=== PATIENT | male | born 1995 | race Caucasian/White ===

== ENCOUNTER → 2018-06-19 | Outpatient (CLI) | payer SELFPAY ==
--- NOTE | 2018-06-19 12:53 | CONS ---
CONSULTATION DATE OF SERVICE: 06/19/2018 This 22-year-old gentleman has been evaluated in the sleep clinic for possible obstructive sleep apnea-hypopnea syndrome. The patient was referred to sleep center by at [facility]. HISTORY OF PRESENT ILLNESS/SLEEP-WAKE EVALUATION: Patient usual sleep schedule from 10 p.m. to 5 a.m. on working days and from midnight until about 8 to 8:30 a.m. on days off. No problem with falling asleep, although he has TV set in bedroom. According to the patient, he is able to sleep through the night without any awakenings. He denied any significant sleepiness during the day. Branch Sleepiness Scale is 7. He usually does not take any naps, but if he does take naps he feels refreshed and sometimes patient feels vivid dreams during the naps. No history of hypnagogic hallucinations, sleep paralysis or cataplexy. The patient significantly increased his weight for the last 6 years from around 260 pounds up to 313 pounds now. PAST MEDICAL HISTORY: Negative. PAST SURGICAL HISTORY: Right knee reconstruction for ACL problems. MEDICATIONS: None. FAMILY HISTORY: Hypertension, diabetes. REVIEW OF SYSTEMS: Sometimes vivid dreams during the naps, otherwise negative. PHYSICAL EXAMINATION: During physical exam, gentleman without distress. VITAL SIGNS: BP 137/76, HR 77, RR 18, height 6 feet and 1/2 inch, weight 313.8, body mass index 41.8, temperature 97.8. Oxygen saturation at room air 98%. HEENT: PERRLA, EOMI. Oropharynx very small oropharyngeal air space, low position of soft palate, pillars. Wide neck 18 inches in circumference. NECK: Supple, no JVD. Thyroid is not palpable. LUNGS: Clear to percussion and to auscultation. Good air exchange. No wheezing or rhonchi. HEART: S1, S2 regular. No murmurs, gallops, or rubs. ABDOMEN: Obese. EXTREMITIES: No clubbing or cyanosis. 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 Cranial nerves 2 to 7 intact. There is no fasciculation or atrophy. noted. No focal deficits observed. IMPRESSION: 1. Very small oropharyngeal air space, low position of soft palate, pillars, wide neck, obesity, possible obstructive sleep apnea-hypopnea syndrome. 2. Obesity, body mass index 41.8. The patient increased his weight of more than 50 pounds for the last 5 years. 3. Status post left knee reconstruction surgery for ACL problems. 4. History of vivid dreams during naps. 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 PLAN: 1. Polysomnography for evaluation of patient's breathing during sleep. 2. CPAP/BiPAP titration if sleep study confirms obstructive sleep apnea-hypopnea syndrome. 3. Preferable position during sleep on the side. 4. No driving if patient feels any sleepiness. 5. I will see patient for follow up visit to explain results of testing and following plan. Thank you very much for allowing me to participate in management of your patient Sincerely, David Wolff MD, PhD, FAASM Diplomat of [employer] [place] [employer] Principal Hardware Architect of [facility] [place] MMODL / IJN: [id number] /
== END | disposition home or self-care (01) ==
LOC: SLEEP 10:59
PROVIDERS: ATTEND Internal Medicine
DX: E66.9 Obesity, unspecified (principal); Z68.41 Body mass index [BMI] 40.0-44.9, adult; Z98.890 Other specified postprocedural states
CPT/HCPCS: 99211

== ENCOUNTER 2023-01-01 07:18 | Emergency (ER) | payer OTHER ==
[2023-01-01 07:26] VITALS: RESP 18; TEMP 97
--- NOTE | 2023-01-01 08:01 | ED ---
General Adult HPI - General Chief complaint: Abdominal Pain Stated complaint: Abd Pain, Acid Reflux Time Seen by Provider: 01/01/23 07:27 Source: patient Mode of arrival: ambulatory Limitations: no limitations - History of Present Illness Initial comments: Dictation was produced using gumi dictation software. please excuse any grammatical, word or spelling errors. Chief Complaint: 27-year-old male presents emergency Department with abdominal pain History of Present Illness: Patient with 7-year-old male presents emergency Department with abdominal pain. Patient states that pain is to his epigastric and right upper quadrant area. Patient reports that the pain radiates to the shoulder. He went to work this morning despite his symptoms and had a bout of vomiting. Patient states that his pain improved. Denies any symptoms yesterday. He does smoke and drink alcohol socially. Patient has any fever. No diarrhea. No obvious sick contacts. The ROS documented in this emergency department record has been reviewed and c onfirmed by me. Those systems with pertinent positive or negative responses have been documented in the HPI. All other systems are other negative and/or noncontributory. - Related Data Home Medications Medication Instructions Recorded Confirmed No Known Home Medications 01/01/23 01/01/23 Allergies Allergy/AdvReac Type Severity Reaction Status Date / Time No Known Allergies Allergy Verified 01/01/23 08:38 Review of Systems ROS Statement: Those systems with pertinent positive or pertinent negative responses have been documented in the HPI. ROS Other: All systems not noted in ROS Statement are negative. 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 , DAD STATES VERONICA HAS RINGWORM BUT IS NOT SURE WHERE IT IS LOCATED OR IF HE STILL HAS IT.- I NOTIFIED DR JUAREZ OFFICE AND SPOKE WITH FARA. History of Any Multi-Drug Resistant Organisms: None Reported Past Surgical History: No Surgical Hx Reported, Adenoidectomy Additional Past Anesthesia/Blood Transfusion Reaction / Comment(s): PT HAS NEVER HAD ANESTHESIA. Past Psychological History: No Psychological Hx Reported Smoking Status: Current every day smoker Past Alcohol Use History: Occasional Past Drug Use History: None Reported - Past Family History Mother Family Medical History: No Reported History General Exam - General Exam Comments Initial Comments: PHYSICAL EXAM: General Impression: Alert and oriented x3, not in acute distress HEENT: Normocephalic atraumatic, extra-ocular movements intact, pupils equal and reactive to light bilaterally, mucous membranes moist. Cardiovascular: Heart regular rate and rhythm Chest: Able to complete full sentences, no retractions, no tachypnea Abdomen: abdomen soft, non-tender, non-distended, no organomegaly, negative Cramer sign Musculoskeletal: Pulses present and equal in all extremities, no peripheral edema Motor: no focal deficits noted Neurological: CN II-XII grossly intact, no focal motor or sensory deficits noted Skin: Intact with no visualized rashes Psych: Normal affect and mood Limitations: no limitations Course Vital Signs 01/01/23 07:22 Temperature 97 F L Pulse Rate 77 Respiratory 18 Rate Blood Pressure 122/79 O2 Sat by Pulse 98 Oximetry EKG Findings - EKG Comments: EKG Findings:: My EKG interpretation: Ventricular rate 69, sinus rhythm,. 151, QRS 125, QTc 44. No VA prolongation, no QTC prolongation, no ST or T-wave changes noted. Overall, this EKG is unremarkable Medical Decision Making - Medical Decision Making Was pt. sent in by a medical professional or institution (, PA, CHIEF LIBRARIAN WORK WITH BLIND, urgent care, hospital, or snf...) When possible be specific @ -No Did you speak to anyone other than the patient for history (EMS, parent, family, police, friend...)? What history was obtained from this source @ -No Did you review nursing and triage notes (agree or disagree)? Why? @ -I reviewed and agree with nursing and triage notes Were old charts reviewed (outside hosp., previous admission, EMS record, old EKG, old radiological studies, urgent care reports/EKG's, snf records)? Report findings @ -No old charts were reviewed Differential Diagnosis (chest pain, altered mental status, abdominal pain women, abdominal pain men, vaginal bleeding, musculoskeletal, weakness, fever, dyspnea, syncope, headache, dizziness, GI bleed, back pain, seizure, CVA, palpatations, mental health)? @ -Differential Abdominal Pain Men: Appendicitis, cholecystitis, diverticulosis, ischemic bowel, pancreatitis, hepatitis, UTI, gastroenteritis, AAA, incarcerated hernia, bowel obstruction, constipation, inflammatory bowel, hepatitis, peptic ulcer disease, splenic infarction, perforated viscus, testicular torsion, this is not meant to be an all-inclusive list EKG interpreted by me (3pts min.). @ -See above X-rays interpreted by me (1pt min.). @ -Abdominal X-rays unremarkable for acute processes CT interpreted by me (1pt min.). @ -None done U/S interpreted by me (1pt. min.). @ -Abdominal ultrasound unremarkable for acute processes What testing was considered but not performed or refused? (CT, X-rays, U/S, labs)? Why? @ -None What meds were considered but not given or refused? Why? @ -None Did you discuss the management of the patient with other professionals (professionals i.e. , PA, CHIEF LIBRARIAN WORK WITH BLIND, lab, RT, psych nurse, social media intern, refractory bricklayer, teacher, security flex utility officer, manager case)? Give summary @ -No Was smoking cessation discussed for >3mins.? @ -No Was critical care preformed (if so, how long)? @ -No Were there social determinants of health that impacted care today? How? (Homelessness, low income, unemployed, alcoholism, drug addiction, transportation, low edu. Level, literacy, decrease access to med. care, long term, rehab)? @ -No Was there de-escalation of care discussed even if they declined (Discuss DNR or withdrawal of care, Hospice)? DNR status @ -No What co-morbidities impacted this encounter? (DM, HTN, Smoking, COPD, CAD, Cancer, CVA, ARF, Chemo, Hep., AIDS, mental health diagnosis, sleep apnea, morbid obesity)? @ -None Was patient admitted / discharged? Hospital course, mention meds given and route, prescriptions, significant lab abnormalities, going to OR and other [facility] [place] info. @ -27-year-old male presents to the emergency department for abdominal pain. Vital signs upon arrival are within acceptable limits. Laboratory evaluation is the most part unremarkable except for some slight transaminitis. Abdominal x- rays negative. Abdominal ultrasound suggests hepatomegaly. Patient symptoms likely from hepatic inflammation it's likely multifactorial due to obesity and a call abuse. She will be discharge she has an appointment this week. Undiagnosed new problem with uncertain prognosis? @ -No Drug Therapy requiring intensive monitoring for toxicity (Heparin, Nitro, Insulin, Cardizem)? @ -No Were any procedures done? @ -No Diagnosis/symptom? Acute, or Chronic, or Acute on Chronic? Uncomplicated (without systemic symptoms) or Complicated (systemic symptoms)? @ -1. Abdominal pain, no high-risk features Side effects of treatment? @ -No Exacerbation, Progression, or Severe Exacerbation? @ -No Poses a threat to life or bodily function? How? (Chest pain, [place], [place], pneumonia, PE, COPD, DKA, ARF, appy, cholecystitis, CVA, Diverticulitis, Homicidal, Suicidal, threat to staff... and all critical care pts) @ -No - Lab Data Result diagrams: 01/01/23 08:00 01/01/23 08:00 Lab Results 01/01/23 01/01/23 Range/Units 08:00 08:00 WBC 7.8 (3.8-10.6) k/uL RBC 5.07 (4.30-5.90) m/uL Hgb 14.9 (13.0-17.5) gm/dL Hct 44.4 (39.0-53.0) % MCV 87.5 (80.0-100.0) fL MCH 29.5 (25.0-35.0) pg MCHC 33.7 (31.0-37.0) g/dL RDW 12.5 (11.5-15.5) % Plt Count 256 (150-450) k/uL MPV 7.6 Neutrophils % 76 % Lymphocytes % 17 % Monocytes % 5 % Eosinophils % 1 % Basophils % 0 % Neutrophils # 5.9 (1.3-7.7) k/uL Lymphocytes # 1.3 (1.0-4.8) k/uL Monocytes # 0.4 (0-1.0) k/uL Eosinophils # 0.1 (0-0.7) k/uL Basophils # 0.0 (0-0.2) k/uL Sodium 140 (137-145) mmol/L Potassium 4.3 (3.5-5.1) mmol/L Chloride 105 (98-107) mmol/L Carbon Dioxide 26 (22-30) mmol/L Anion Gap 9 mmol/L BUN 12 (9-20) mg/dL Creatinine 0.82 (0.66-1.25) mg/dL Est GFR (CKD-EPI)AfAm >90 (>60 ml/min/1.73 sqM) Est GFR (CKD-EPI)NonAf >90 (>60 ml/min/1.73 sqM) Glucose 107 H (74-99) mg/dL Calcium 9.3 (8.4-10.2) mg/dL Total Bilirubin 1.0 (0.2-1.3) mg/dL AST 148 H (17-59) U/L ALT 153 H (4-49) U/L Alkaline Phosphatase 74 (38-126) U/L Total Protein 7.8 (6.3-8.2) g/dL Albumin 4.6 (3.5-5.0) g/dL Lipase 203 (23-300) U/L Disposition Clinical Impression: Abdominal pain Disposition: HOME SELF-CARE Condition: Fair Instructions (If sedation given, give patient instructions): Abdominal Pain (ED) Is patient prescribed a controlled substance at d/c from ED?: No Referrals: None,Stated [Primary Care Provider] - 1-2 days Time of Disposition: 10:48
[2023-01-01 08:24] LABS: Basophils % (A) 0 %; Eosinophils # (A) 0.1 k/uL (0-0.7); Eosinophils % (A) 1 %; HCT 44.4 % (39.0-53.0); HGB 14.9 gm/dL (13.0-17.5); Lymphocytes # (A) 1.3 k/uL (1.0-4.8); Lymphocytes % (A) 17 %; MCH 29.5 pg (25.0-35.0); MCHC 33.7 g/dL (31.0-37.0); MCV 87.5 fL (80.0-100.0); Mean Platelet Volume 7.6; Monocytes # (A) 0.4 k/uL (0-1.0); Monocytes % (A) 5 %; Neutrophils # (A) 5.9 k/uL (1.3-7.7); Neutrophils % (A) 76 %; Platelet Count 256 k/uL (150-450); RBC 5.07 m/uL (4.30-5.90); RDW 12.5 % (11.5-15.5); WBC 7.8 k/uL (3.8-10.6)
[2023-01-01 08:38] LABS: ALT 153 U/L (4-49); AST 148 U/L (17-59); African American GFR (CKD) >90 (>60 ml/min/1.73 sqM); Albumin 4.6 g/dL (3.5-5.0); Alkaline Phosphatase 74 U/L (38-126); Anion Gap 9 mmol/L; Blood Urea Nitrogen 12 mg/dL (9-20); Calcium 9.3 mg/dL (8.4-10.2); Carbon Dioxide 26 mmol/L (22-30); Chloride 105 mmol/L (98-107); Glucose 107 mg/dL (74-99); Lipase 203 U/L (23-300); Non-African American GFR(CKD) >90 (>60 ml/min/1.73 sqM); Potassium 4.3 mmol/L (3.5-5.1); Sodium 140 mmol/L (137-145); Total Protein 7.8 g/dL (6.3-8.2)
--- NOTE | 2023-01-01 08:47 | XR ---
EXAMINATION TYPE: XR abdomen 1V DATE OF EXAM: 01/01/2023 HISTORY: Abdominal pain. Technique: Upright view of the abdomen was obtained with 2 radiographs. Comparison: None. Findings: There is no convincing evidence of pneumoperitoneum. The Bowel gas pattern is nonspecific and nonobstructive. No sizable air-fluid levels are seen. No mass effects are noted. No renal calcifications are identified. IMPRESSION: Nonspecific nonobstructive bowel gas pattern
--- NOTE | 2023-01-01 09:50 | US ---
EXAMINATION TYPE: US abdomen limited DATE OF EXAM: 01/01/2023 COMPARISON: Abdominal radiograph the same date CLINICAL INDICATION: Male, 27 years old with history of epigastric pain; chest pain, epigastric pain, vomiting this morning, pt. suspects hiatal hernia TECHNIQUE: Multiple sonographic images of the right upper quadrant are obtained. FINDINGS: EXAM MEASUREMENTS: Liver Length: 18.7 cm Gallbladder Wall: 0.2 cm CBD: 0.6 cm Right Kidney: 10.8x6.8x7.0 cm EXTRUSION MANAGER NOTES: Pancreas: Tail obscured by overlying bowel gas Liver: Increased attenuation, enlarged Gallbladder: wnl Evidence for sonographic Cramer's sign: No CBD: wnl Right Kidney: No hydronephrosis or masses seen exam slightly limited due to body habitus, bowel gas and attenuation The visualized portions of the pancreas unremarkable. The tail is obscured by overlying bowel gas. Th e liver appears enlarged with increased attenuation. No focal lesion identified. Gallbladder is withi n normal limits without evidence of cholelithiasis, wall thickening, or pericholecystic fluid. Per so nographer, negative sonographic Cramer sign. Common bile duct is within normal limits. Right kidney i s unremarkable without evidence of hydronephrosis, solid mass, or nephrolithiasis. IMPRESSION: 1. No acute process. 2. Hepatic steatosis.
[2023-01-01 11:03] VITALS: BP 143/82; PULSE 57
== END 2023-01-01 11:03 | disposition home or self-care (01) ==
LOC: EC 07:18
DX: R10.11 Right upper quadrant pain (principal); R10.13 Epigastric pain; F17.200 Nicotine dependence, unspecified, uncomplicated
CPT/HCPCS: 36415; 74018; 76705; 80053; 83690; 85025; 93005; 99284